=== PATIENT | male | born 1995 | race Caucasian/White ===

== ENCOUNTER 2016-10-24 10:56 | Emergency (ER) | payer OTHER ==
[~2016-10-24] VITALS: Ht 180.3 cm; Wt 85.0 kg
[2016-10-24 11:05] VITALS: BP 119/58; PULSE 89; TEMP 36.3; O2SAT 98; Ht 180.3 cm; Wt 85.0 kg
[2016-10-24] MEDS ORDERED: XYLOCAINE 1%/SOD BICARB 20 ML VIAL INFIL ONE (11:15)
--- NOTE | 2016-10-24 11:30 | DIAGNOSTIC IMAGING REPORT ---
Right great toe 3 views CLINICAL HISTORY: Right great toe pain status post trauma COMPARISON: None. DISCUSSION: There is a mildly comminuted fracture involving the lateral aspect of the tuft of the distal phalanx. There is an overlying soft tissue injury. IMPRESSION: Fracture involving the tuft of the distal phalanx Electronically signed by: Golden Bell M.D. 10/24/2016 11:28 AM Dictated Date/Time: 10/24/2016 11:28 AM
--- NOTE | 2016-10-24 12:19 | EMERGENCY ROOM VISIT NOTE ---
ED Visit Note First contact with patient: 11:08 CHIEF COMPLAINT: Right great toe injury/laceration HISTORY OF PRESENT ILLNESS: This 21-year-old male presents the ER with chief complaint that he has a laceration to his right great toe. The patient states while at work today he was mowing grass and was wearing sneakers. He went down a hill and his foot slipped and went underneath the mower. The patient denies any numbness and tingling in the toe. The patient tetanus is up-to-date. The patient states he initially went to [facility] but was told to come to the emergency room. REVIEW OF SYSTEMS: 6 system review was performed and was negative unless stated otherwise in history of present illness. PMH: The patient is healthy; there is no significant medical or surgical history. SOCIAL HISTORY: Patient lives currently with his brother. The patient admits to tobacco use but denies any alcohol use. PHYSICAL EXAM: Vital Signs: Were reviewed Reviewed Nurse's notes. GEN.: 21-year -old white male appears in no acute distress. MENTAL Status: Alert and oriented 3. RIGHT GREAT TOE: There is a 3 cm V-shaped laceration on the distal portion of the toe. The wound looks clean. The edges are gaping apart. There is no foreign material in the wound and it looks clean. There is no active bleeding. No deep structures such as tendons or nerves are seen in the base of the wound. EMERGENCY DEPARTMENT COURSE: The patient was evaluated. The patient was given Motrin 600 mg by mouth for pain. X-ray of the right great toe was ordered and interpreted by the radiologist and myself. DIAGNOSTICS:Right great toe 3 views CLINICAL HISTORY: Right great toe pain status post trauma COMPARISON: None. DISCUSSION: There is a mildly comminuted fracture involving the lateral aspect of the tuft of the distal phalanx. There is an overlying soft tissue injury. IMPRESSION: Fracture involving the tuft of the distal phalanx Electronically signed by: Golden Bell M.D. 10/24/2016 11:28 AM Dictated Date/Time: 10/24/2016 11:28 AM The patient was informed of the findings. Wound Repair: Complexity: Basic. Verbal consent was obtained after the risks and benefits were explained, including but not limited to bleeding, scarring, infection, pain, and bone/joint /nerve damage. The skin was prepped with betadine and a sterile field set. The wound was anesthetized with 4.8 ml of 1% buffered lidocaine. With direct pressure the bleeding subsided. Copious irrigation was performed using sterile saline. The wound was explored for foreign bodies and none found. Debridement was not performed. The wound edges were approximated using4-0 Ethilon with5 simple interrupted sutures. Hemostasis and excellent approximation was achieved. Antibacterial ointment and a sterile dressing applied. Detailed wound care instructions and signs and symptoms of infection reviewed with the patient. No complications and the patient tolerated the procedure well. The patient was placed in a postop shoe. The patient was discharged home in stable condition. DIAGNOSIS: 3 cm right great toe laceration Comminuted fracture distal phalanx right great toe DISCHARGE INSTRUCTIONS & TREATMENT: Antibiotic ointment and a bandage for 3 days. Take Cipro as prescribed. Ibuprofen 600 mg every 6 hours with food for pain. Keep leg elevated as much as possible over the next 24 hours. Wear postop shoe until evaluated by orthopedics. Call [facility] orthopedics on Wednesday morning for follow-up appointment. Any signs of infection, return to ER. Suture removal in 10-12 days. Current/Historical Medications No Active Prescriptions or Reported Meds Allergies Coded Allergies: No Known Allergies (Unverified , 10/24/16) Vital Signs Date Time Temp Pulse Resp B/P (MAP) Pulse Ox O2 Delivery O2 Flow Rate FiO2 10/24/16 11:05 36.3 89 18 119/58 98 Room Air Departure Information Prescriptions No Active Prescriptions or Reported Meds Referrals No Doctor, Assigned (PCP) Patient Instructions [facility]
[2016-10-24] MEDS ORDERED: CIPR-255 PO (12:21)
== END 2016-10-24 12:43 | disposition home or self-care (01) ==
LOC: C.EDB 11:00 → C.EDD 12:43
DX: S91.111A Laceration without foreign body of right great toe without damage to nail, initial encounter (principal); S92.421A Displaced fracture of distal phalanx of right great toe, initial encounter for closed fracture; W28.XXXA Contact with powered lawn mower, initial encounter; Y93.H9 Activity, other involving exterior property and land maintenance, building and construction; Y99.0 Civilian activity done for income or pay; Z72.0 Tobacco use